=== PATIENT | female | born 1995 | race African-American/Black ===

== ENCOUNTER → 2016-12-29 | Outpatient (CLI) | payer MEDICAID ==
--- NOTE | 2016-12-29 15:58 | RADIOLOGY REPORT (SQ) ---
EXAM DESCRIPTION: U/S OB 14+ TRNABD 1GES W/O DOP COMPLETED DATE/TIME: 12/29/2016 3:20 pm REASON FOR STUDY: ENCOUNTER FOR SUPERVISION OF NORMAL , FIRST TRIMESTER Z34.81 ENCOUNTER F OR SUPRVSN OF NORMAL , FIRST TRIM COMPARISON: None. TECHNIQUE: Static and Dynamic grayscale imaging performed of gravid uterus using transabdominal appr oach. Additional selected color Doppler and spectral images recorded. All stored on PACS. LIMITATIONS: None. FINDINGS: EGA: 17 week 6 day. SANDRA: 06/02/2017. EFW: 214 g. PERCENTILE: Not applicable. Fetus less than or equal to 20 weeks gestation.No DONNIE: Adequate amount. PLACENTA: Posterior fundal. PRESENTATION: Variable. ANATOMY: HEART RATE: 136 beats per minute. FOUR CHAMBER HEART: Visualized. THREE VESSEL CORD: Yes. CORD INSERTION: Visualized. KIDNEYS AND BLADDER: Mild prominence of the renal pelvis of both kidneys. STOMACH: Visualized. Appears normal. SPINE: Normal as visualized. BRAIN AND LATERAL VENTRICLES: Visualized. Appear normal. OTHER: No other significant finding. MATERNAL ADNEXA: Maternal ovaries not visualized. CERVICAL LENGTH: 4.3 cm. Closed. OTHER: No other significant finding. IMPRESSION: LIVING INTRAUTERINE . ESTIMATED GESTATIONAL AGE 17 WEEK 6 DAY. MILD PROMINENCE OF THE RENAL PELVIS OF BOTH KIDNEYS. RECOMMEND FOLLOW-UP ULTRASOUND IN A FE W WEEKS FOR RE-EVALUATION. Trimester of : Second trimester - 13 weeks 1 day to 27 weeks 6 days. TECHNICAL DOCUMENTATION: JOB ID: [id number] [employer]- All Rights Reserved
== END ==
LOC: RAD 14:03
PROVIDERS: ATTEND Nurse Practitioner Women's Health
DX: Z34.82 Encounter for supervision of other normal pregnancy, second trimester (principal)
CPT/HCPCS: 76805

== ENCOUNTER 2017-05-23 13:14 | Outpatient (CLI) | payer MEDICAID ==
[2017-05-23 14:08] LABS: AMNISURE (ROM) NEGATIVE (NEGATIVE)
[2017-05-23 14:13] LABS: APPEARANCE,URINE CLOUDY; BILIRUBIN,URINE NEGATIVE (NEGATIVE); GLUCOSE, URINE NEGATIVE (NEGATIVE); KETONES,URINE NEGATIVE (NEGATIVE); LEUKOCYTE ESTERASE,URINE LARGE (NEGATIVE); NITRITE,URINE NEGATIVE (NEGATIVE); PROTEIN,URINE 30 mg/dL (NEGATIVE); URINE SPECIFIC GRAVITY 1.016
[2017-05-23 14:36] LABS: URINE BARBITURATES SCREEN NEGATIVE; URINE METHADONE SCREEN NEGATIVE; URINE OPIATES LOW NEGATIVE; URINE PHENCYCLIDINE SCREEN NEGATIVE
== END 2017-05-23 15:30 | disposition home or self-care (01) ==
LOC: LC 13:14
PROVIDERS: ATTEND Obstetrics & Gynecology
PROC: 4A1HXCZ Monitoring of Products of Conception, Cardiac Rate, External Approach (ICD-10-PCS; principal; 2017-05-23)
DX: O47.1 False labor at or after 37 completed weeks of gestation (principal); Z3A.38 38 weeks gestation of pregnancy
CPT/HCPCS: 59025; 80307; 81005; 84112

== ENCOUNTER 2017-06-01 08:32 | Inpatient (IN) | payer MEDICAID ==
[2017-06-01] MEDS ORDERED: OXYTOCIN/NORMAL SALINE 20 UNIT/1,000 ML RTUINJ IV PRN ×2 (09:12→16:37)
[2017-06-01] MEDS ORDERED: RINGERS SOLUTION,LACTATED 300 ML IV ONE (09:12)
[2017-06-01] MEDS ORDERED: RINGERS SOLUTION,LACTATED 1,000 ML IV PRN (09:12)
[2017-06-01 09:18] LABS: AMNISURE (ROM) NEGATIVE (NEGATIVE)
[2017-06-01] MEDS ORDERED: MISOPROSTOL 0.2 MG TABLET ONE (09:31)
[2017-06-01] MEDS ORDERED: OXYTOCIN/NORMAL SALINE 20 UNIT/1,000 ML RTUINJ ONE (09:32)
[2017-06-01] MEDS ORDERED: FENTANYL/BUPIVACAINE/NS/PF 200 MCG/100 ML RTUINJ EPI ONE (09:32)
[2017-06-01] MEDS ORDERED: EPHEDRINE SULFATE INJ 50 MG/1 ML AMPULE ONE (09:32)
[2017-06-01] MEDS ORDERED: LIDOCAINE 1% INJ-PF (10 MG/ML) 30 ML SDV ONE (09:32)
[2017-06-01] MEDS ORDERED: BUPIVACAINE HCL 0.25 % INJ/PF (2.5 MG/1 ML) 30 ML VIAL ONE (09:32)
[2017-06-01 09:48] LABS: ABSOLUTE EOSINOPHILS # (AUTO) 0.1 10^3/uL (0.0-0.6); ABSOLUTE MONOCYTES (AUTO) 0.8 10^3/uL (0.1-1.4); ABSOLUTE NEUT (AUTO) 7.9 10^3/uL (1.7-8.2); BASOPHILS % (AUTO) 0.5 % (0-2); EOSINOPHILS % (AUTO) 0.8 % (0-6); HEMATOCRIT 30.7 % (36.0-47.0); HEMOGLOBIN 9.8 g/dL (12.0-15.5); HGB HCT DIFFERENCE -1.3; LYMPHOCYTES % (AUTO) 18.5 % (13-45); MEAN CORPUSCULAR HEMOGLOBIN 21.3 pg (27.0-33.4); MEAN CORPUSCULAR VOLUME 67 fl (80-97); MONOCYTES % (AUTO) 7.2 % (3-13); RED BLOOD COUNT 4.61 10^6/uL (3.72-5.28); RED CELL DISTRIBUTION WIDTH 17.7 % (11.5-14.0); WHITE BLOOD COUNT 10.8 10^3/uL (4.0-10.5)
[2017-06-01 10:00] LABS: CREATININE RESULT 0.54 mg/dL (0.52-1.25)
--- NOTE | 2017-06-01 11:05 | L&D Progress Notes ---
PROGRESS NOTES Datetime Report Generated by CPN: 06/01/2017 11:05 PROGRESS NOTE Impression: Normal Progression of Labor Procedures: Artificial ROM; Sterile Vag Exam Plan: Continue Present Management Comment: SVE with AROM with clear fluid. Comfortable with epidural in place. VAGINAL EXAM Dilatation: 7 Dilatation: 4 Effacement: 100 Effacement: 90 Station: -1 Station: -1 MEMBRANES Membranes: Ruptured Membranes: Bulging Amniotic Fluid Color: Clear FETUS A FHR - Baseline: 120 Monitoring: External US : 39.6 Presentation: Vertex SIGNATURE SIGNATURE: [id number] Assignment: Alize Sewell MD Signature: with User ID: [email or web address] : with User ID: [email or web address] : I personally evaluated and examined the patient in conjunction with the MLP and agree with the assessment, treatment plan and disposition.
[2017-06-01 11:29] LABS: APPEARANCE,URINE CLEAR; BILIRUBIN,URINE NEGATIVE (NEGATIVE); GLUCOSE, URINE NEGATIVE (NEGATIVE); KETONES,URINE NEGATIVE (NEGATIVE); LEUKOCYTE ESTERASE,URINE TRACE (NEGATIVE); NITRITE,URINE NEGATIVE (NEGATIVE); PROTEIN,URINE NEGATIVE (NEGATIVE); URINE SPECIFIC GRAVITY 1.012; UROBILINOGEN,URINE NEGATIVE mg/dL (<2.0)
[2017-06-01 11:47] LABS: URINE BARBITURATES SCREEN NEGATIVE; URINE METHADONE SCREEN NEGATIVE; URINE OPIATES LOW NEGATIVE; URINE PHENCYCLIDINE SCREEN NEGATIVE
[2017-06-01] MEDS ORDERED: MAGNESIUM HYDROXIDE SUSP 30 ML UDCUP PO PRN (16:37)
[2017-06-01] MEDS ORDERED: ACETAMINOPHEN WITH CODEINE #3 TABLET PO PRN ×2 (16:37)
[2017-06-01] MEDS ORDERED: ZOLPIDEM TARTRATE 5 MG TABLET PO PRN (16:37)
[2017-06-01] MEDS ORDERED: GLYCERIN/WITCH HAZEL LEAF 1 EACH MED..PAD TP PRN (16:37)
[2017-06-01] MEDS ORDERED: DIBUCAINE 1% OINTMENT 28 GM TP PRN (16:37)
[2017-06-01] MEDS ORDERED: PROMETHAZINE HCL INJ 25 MG/1 ML VIAL IV PRN (16:37)
[2017-06-01] MEDS ORDERED: PROMETHAZINE HCL 25 MG TABLET PO PRN (16:37)
[2017-06-01] MEDS ORDERED: PSEUDOEPHEDRINE HCL 30 MG TABLET PO PRN (16:37)
[2017-06-01] MEDS ORDERED: ACETAMINOPHEN 650 MG SUPP.RECT PR PRN (16:37)
[2017-06-01] MEDS ORDERED: DIPHENHYDRAMINE HCL 25 MG CAPSULE PO PRN (16:37)
[2017-06-01] MEDS ORDERED: DIPH/PERTUSS(ACELL)/TETANUS VAC/PF 0.5 ML SYR (>=10YO) IM PRN (16:37)
[2017-06-01] MEDS ORDERED: BENZOCAINE/MENTHOL AEROSOL SPRAY 56 ML TOP PRN (16:37)
[2017-06-01] MEDS ORDERED: PROMETHAZINE HCL 25 MG SUPP.RECT PR PRN (16:37)
[2017-06-01] MEDS ORDERED: NA PHOS,M-B/NA PHOS,DI-BA (ADULT) 133 ML ENEMA PR PRN (16:37)
[2017-06-01] MEDS ORDERED: MEASLES,MUMPS&RUBELLA VACC/PF 0.5 ML VIAL SUBCUT PRN (16:37)
--- NOTE | 2017-06-01 18:08 | Admission Physical ---
Datetime Report Generated by CPN: 06/01/2017 18:08 CURRENT ADMISSION Chief Complaint: Uterine Contractions; Suspected Ruptured Membranes Indication for Induction: Term, Intrauterine ; Active Labor Admit Plan: Admit to Unit; Initiate Labor Protocol ALLERGIES Medication Allergies: No Medication Allergies: No Known Allergies (06/01/2017) Medication Allergies: No Known Allergies (05/23/2017) Medication Allergies: NKDA Latex: No Latex Allergies Food Allergies: none Environmental Allergies: none OBSTETRICAL HISTORY EDC: 06/02/2017 00:00 : 2 Para: 0 Term: 0 : 0 SAB: 1 IAB: 0 Ectopic: 0 Livin Cesareans: 0 VBACs: 0 Multiple Births: 0 Gestational Diabetes: No Rh Sensitization: No Incompetent Cervix: No ERIBERTO: No Infertility: No ART Treatment: No Uterine Anomaly: No IUGR: No Hx Previous C/S: No Macrosomia: No Hx Loss/Stillborn: No PIH: No Hx : No Placenta Previa/Abruption: No Depression/PP Depression: No PTL/PROM: No Post Hemorrhage: No Current Procedures: Ultrasound; NST Obstetrical History Comments: G1- SAB G2- Current SEE RECORDS Alcohol: No Marijuana : No Cocaine: No Other Illicit Drugs: No Cigarettes: Never Smoker. 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 Surgery: No Heart Disease: No Hosp/Surgery: Yes Autoimmune Disorder: No Anesthetic Complications: No Kidney Disease: No Abnormal Pap Smear: No Neuro/Epilepsy: No Psychiatric Disorders: No Other Medical Diseases: No Hepatitis/Liver Disease: No Significant Family History: No Varicosities/Phlebitis: No Trauma/Violence : No Thyroid Dysfunction: No Medical History Comments: Tonsils INFECTIOUS HISTORY Gonorrhea: No Genital Herpes: No Chlamydia: No Tuberculosis: No Syphilis: No Hepatitis: No HIV/AIDS Exposure: No Rash or Viral Illness: No HPV: No PHYSICAL EXAM General: Normal HEENT: Normal Neurologic: Normal Thyroid: Deferred Heart: Normal Lungs: Normal Breast: Deferred Back: Normal Abdomen: Normal Genitourinary Exam: Deferred Extremities: Normal DTRs: Normal Pelvic Type: Not Done Physical Exam Comments: Gravid uterus VAGINAL EXAM Dilatation: 7 Dilatation: 4 Effacement: 100 Effacement: 90 Station: -1 Station: -1 MEMBRANES Membranes: Ruptured Membranes: Bulging Amniotic Fluid Color: Clear FETUS A EGA: 39.6 Monitoring: External US FHR- Baseline: 130 Variability: Moderate 6-25bpm Decelerations: None Presentation: Vertex Admit Comment: C/o labor contractions and possible SROM this am records available Obesity Plan to admit and obtain epidural for pain management PLANS FOR LABOR AND DELIVERY Labor and Delivery: None Pain Management: Epidural Feeding Preference: Breast Benefit of Breast Feed Discussed: Yes Circumcision: N/A INFORMED CONSENT Assignment: Alize Sewell MD Signature: with User ID: [email or web address] : with User ID: [email or web address] : I personally evaluated and examined the patient in conjunction with the MLP and agree with the assessment, treatment plan and disposition.
--- NOTE | 2017-06-01 18:23 | Delivery Summary ---
Del Sum A-C Datetime Report Generated by CPN: 06/01/2017 18:23 DELIVERY PERSONNEL DELIVERY PERSONNEL: [id number] Delivery Doctor:: Alize Sewell MD Labor and Delivery Nurse:: Caridad Carpio RN Nursery Nurse:: Erika Craig RN Nursery Nurse:: Lucinda Madsen RN Student Observers:: Alf Ta/AUTO SELF SERVICE STATION ATTENDANT: Ozzie Heard, BURNISHING MACHINE OPERATOR MATERNAL INFORMATION Delivery Anesthesia: Epidural Medications After Delivery: Pitocin Bolus-Please Comment Meds After Delivery Comment: Pitocin 20 Units in 1 L NS bolusing per order Estimated Blood Loss (ml): 250 Maternal Complications: None Provider Comments: VFI delivered in JONATAN presentation. Tight nuchal cord delivered through. SHoulders and body delivered without difficulty. Cord doubly clamped and cut and infant to maternal abdomen. FF at U after placenta delivered spontaneously intact. 2nd degree perineal laceration repaired in usual fashion. Good hemostasis. Mother and baby stable upon provider leaving the room. LABOR SUMMARY EDC: 06/02/2017 00:00 No. Babies in Womb: 1 Attempted: No Labor Anesthesia: Epidural LABOR INFORMATION Reason for Induction: Not Applicable Onset of Labor: 06/01/2017 11:00 Complete Dilatation: 06/01/2017 14:55 Oxytocin: N/A Group B Beta Strep: Negative Antibiotics # of Doses: 0 Steroids Given: None Reason Steroids Not Administered: Not Applicable MEMBRANES Membranes Rupture Method: Artificial Rupture of Membranes: 06/01/2017 10:58 Length of Rupture (hr): 4.90 Amniotic Fluid Color: Clear Amniotic Fluid Amount: Small Amniotic Fluid Odor: Normal STAGES OF LABOR Stage 1 hr: 3 Stage 1 min: 55 Stage 2 hr: 0 Stage 2 min: 57 Stage 3 hr: 0 Stage 3 min: 6 Total Time in Labor hr: 4 Total Time in Labor min: 58 VAGINAL DELIVERY Episiotomy: None Laceration #1: Perineal Laceration Extension #1: Second Degree Laceration Repair: Yes Laceration Repair Note: 2nd degree perineal laceration repaired in usual fashion. Good hemostasis Sponge Count Correct: N/A Sharps Count Correct: Yes CSECTION DELIVERY Primary Indication: N/A Secondary Indication: N/A CSection Incidence: N/A Labor: N/A Elective: N/A CSection Incision: N/A BABY A INFORMATION Infant Delivery Date/Time: 06/01/2017 15:52 Method of Delivery: Vaginal Born in Route : No : N/A Forceps: N/A Vacuum Extraction: N/A Shoulder Dystocia : No PRESENTATION/POSITION BABY A Presentation: Cephalic Cephalic Presentation: Vertex Vertex Position: Right Occipital Anterior Breech Presentation: N/A PLACENTA INFORMATION BABY A Placenta Delivery Time : 06/01/2017 15:58 Placenta Method of Delivery: Spontaneous Placenta Status: Delivered SCORES BABY A Heart Rate 1 min: >100 bpm Resp Effort 1 min: Good Cry Reflex Irritability 1 min: Cough or Sneeze or Pulls Away Muscle Tone 1 min: Active Motion Color 1 min: Body Boutte, Extremities Blue Resuscitation Effort 1 min: Tactile Stimulation SCORE 1 MIN: 9 Heart Rate 5 min: >100 bpm Resp Effort 5 min: Good Cry Reflex Irritability 5 min: Cough or Sneeze or Pulls Away Muscle Tone 5 min: Active Motion Color 5 min: Body Boutte, Extremities Blue Resuscitation Effort 5 min: Tactile Stimulation SCORE 5 MIN: 9 INFANT INFORMATION BABY A Gestational Age at Delivery: 39.6 Gestational Status: Full Term- 39- 40.6 Weeks Outcome : Liveborn Condition : Stable Infant Sex: Female IDENTIFICATION BABY A Infant Verification Date/Time: 06/01/2017 16:03 ID Band Number: [id number] Mother's Name Verified: Yes RN Verifying : J Field RN Additional Verifying Personnel: D [facility] RNC WEIGHT/LENGTH BABY A Infant Birthweight (gm): 3930 Weight (lb): 8 Infant Weight (oz): 11 Length (in): 20.50 Length (cm): 52.07 CORD INFORMATION BABY A No. Cord Vessels: 3 Nuchal Cord : Around Neck x1, Tight Nuchal Cord- Other: Compound right hand Cord Blood Taken: Yes-For Storage (Mom's Blood type +) Infant Suction: Mouth; Nose ASSESSMENT BABY A Infant Complications: Decreased Variability Skin to Skin: Yes Skin to Skin Time (min): 45 BABY B INFORMATION : N/A SIGNATURES Signature: with User ID: [email or web address] : I personally evaluated and examined the patient in conjunction with the MLP and agree with the assessment, treatment plan and disposition.
[2017-06-01] MEDS: DOCUSATE SODIUM 100 MG CAPSULE PO SCH (19:35)
[2017-06-01] MEDS: SENNOSIDES/DOCUSATE 8.6-50 MG 1 EACH TABLET PO SCH (19:35)
[2017-06-01] MEDS: FERROUS SULFATE 325 MG TABLET PO SCH (21:19)
[2017-06-01] MEDS: IBUPROFEN 800 MG TABLET PO SCH (21:44)
[2017-06-01] MEDS: FAMOTIDINE 20 MG TABLET PO SCH (21:44)
[2017-06-02] MEDS: IBUPROFEN 800 MG TABLET PO SCH ×3 (05:20→21:33)
[2017-06-02 08:07] LABS: HEMATOCRIT 24.6 % (36.0-47.0); HGB HCT DIFFERENCE -1.5; MEAN CORPUSCULAR HEMOGLOBIN 21.3 pg (27.0-33.4); MEAN CORPUSCULAR HGB CONC 31.5 g/dL (32.0-36.0); MEAN CORPUSCULAR VOLUME 68 fl (80-97); RED BLOOD COUNT 3.64 10^6/uL (3.72-5.28); RED CELL DISTRIBUTION WIDTH 17.4 % (11.5-14.0); WHITE BLOOD COUNT 13.7 10^3/uL (4.0-10.5)
[2017-06-02 08:16] LABS: HEMOGLOBIN 7.7 g/dL (12.0-15.5)
[2017-06-02] MEDS: SENNOSIDES/DOCUSATE 8.6-50 MG 1 EACH TABLET PO SCH (09:50)
[2017-06-02] MEDS: FERROUS SULFATE 325 MG TABLET PO SCH ×2 (09:51→17:47)
[2017-06-02] MEDS: PRENATAL VITAMIN W-O CA NO5/FE FUMARATE/FA CAPSULE PO SCH (09:51)
[2017-06-02] MEDS: FAMOTIDINE 20 MG TABLET PO SCH ×2 (09:51→21:32)
[2017-06-02] MEDS: DOCUSATE SODIUM 100 MG CAPSULE PO SCH ×2 (09:51→17:47)
--- NOTE | 2017-06-02 10:18 | PDOC PROGRESS REPORT ---
Subjective-OB Subjective: Post Delivery Day: 22 year old. Denies any needs at this time Doing well, no c/o, breast feeding, voiding, ambulating Physical Exam (OB) Vital Signs: Temp Pulse Resp BP Pulse Ox 98.0 F 74 15 123/57 L 100 06/02/17 08:30 06/02/17 08:30 06/02/17 08:30 06/02/17 08:30 06/02/17 08:30 Intake & Output 06/01/17 06/02/17 06/03/17 06:59 06:59 06:59 Weight 102.75 kg - PIH/Pre-Eclampsia Clonus: Positive - Lochia Lochia Amount: Scant < 10 ml Lochia Color: Rubra/Red - Abdomen Description: Soft, Flat Hernia Present: No Fundal Description: Firm, Midline Fundal Height: 1/u - 2/u Objective-Diagnostic Laboratory: 06/02/17 07:10 06/01/17 09:33 06/01/17 06/01/17 06/02/17 08:36 09:33 07:10 WBC 13.7 H RBC 3.64 L Hgb 7.7 L D Hct 24.6 L MCV 68 L MCH 21.3 L MCHC 31.5 L RDW 17.4 H Plt Count 303 Urine Color YELLOW Urine Appearance CLEAR Urine pH 6.0 Ur Specific [place] 1.012 Urine Protein NEGATIVE Urine Glucose (UA) NEGATIVE Urine Ketones NEGATIVE Urine Blood NEGATIVE Urine Nitrite NEGATIVE Ur Leukocyte Esterase TRACE H Blood Type A POSITIVE Antibody Screen NEGATIVE Assessment and Plan(PN) - Assessment and Plan (1) Normal vaginal delivery Is this a current diagnosis for this admission?: Yes (2) Anemia Qualifiers: Anemia type: iron deficiency Is this a current diagnosis for this admission?: Yes - Time Spent with Patient Time with patient: Less than 15 minutes Medications reviewed and adjusted accordingly: Yes - Disposition Anticipated Discharge: Home Within: within 24 hours
[2017-06-03] MEDS: IBUPROFEN 800 MG TABLET PO SCH (05:57)
[2017-06-03 09:50] VITALS: BP 124/72
[2017-06-03] MEDS: FERROUS SULFATE 325 MG TABLET PO SCH (10:12)
[2017-06-03] MEDS: SENNOSIDES/DOCUSATE 8.6-50 MG 1 EACH TABLET PO SCH (10:12)
[2017-06-03] MEDS: FAMOTIDINE 20 MG TABLET PO SCH (10:12)
[2017-06-03] MEDS: PRENATAL VITAMIN W-O CA NO5/FE FUMARATE/FA CAPSULE PO SCH (10:13)
[2017-06-03] MEDS: DOCUSATE SODIUM 100 MG CAPSULE PO SCH (10:13)
--- NOTE | 2017-06-03 11:06 | PDOC DISCHARGE SUMMARY ---
Final Diagnosis Discharge Date: 06/03/17 - Final Diagnosis (1) Anemia Is this a current diagnosis for this admission?: Yes (2) Normal vaginal delivery Is this a current diagnosis for this admission?: Yes Discharge Data - Discharge Medication Home Medications: Pnv 102/Iron/Folate 1/Dss/Dha [Vitafol Fe+ Docusate Combo Pck] 1 tab PO DAILY Docusate Sodium [Colace 100 mg Capsule] 100 mg PO BID #60 capsule 06/03/17 Ferrous Sulfate [Feosol 325 mg Tablet] 325 mg PO BID #60 tablet 06/03/17 Ibuprofen [Motrin 800 mg Tablet] 800 mg PO Q8 #60 tablet 06/03/17 Gestational Age: 39.6 Procedures: NST Intrapartum Procedure(s): Spontaneous Vaginal Delivery - Data Baby 1 Female at 1 minute: 9 at 5 minutes: 9 Weight: 3.941 kg Home with Mother: Yes Complications: No - Diagnosis Test Laboratory: Temp Pulse Resp BP Pulse Ox 97.7 F 80 16 124/72 100 06/03/17 09:47 06/03/17 09:47 06/03/17 09:47 06/03/17 09:47 06/03/17 09:47 06/01/17 06/01/17 06/02/17 08:36 09:33 07:10 RBC 4.61 3.64 L Hgb 9.8 L 7.7 L D Hct 30.7 L 24.6 L Urine Opiates Screen NEGATIVE - Discharge information/Instructions Discharge Activity: Activity As Tolerated, Pelvic Rest, No tub bath Discharge Diet: Regular Disposition: HOME, SELF-CARE Follow up with: [facility] in: 4, Weeks
== END 2017-06-03 13:50 | disposition home or self-care (01) | DRG 775 ==
LOC: LC 08:32 → LR 09:12 → 2S 18:06
PROVIDERS: ADMIT Student in an Organized Health Care Education/Training Program; ATTEND Student in an Organized Health Care Education/Training Program
PROC: 10E0XZZ Delivery of Products of Conception, External Approach (ICD-10-PCS; principal; 2017-06-01)
PROC: 0KQM0ZZ Repair Perineum Muscle, Open Approach (ICD-10-PCS; 2017-06-01)
DX: O69.1XX0 Labor and delivery complicated by cord around neck, with compression, not applicable or unspecified (principal); O99.214 Obesity complicating childbirth; E66.9 Obesity, unspecified; O70.1 Second degree perineal laceration during delivery; D50.9 Iron deficiency anemia, unspecified; O99.02 Anemia complicating childbirth; O76 Abnormality in fetal heart rate and rhythm complicating labor and delivery; Z3A.39 39 weeks gestation of pregnancy; Z37.0 Single live birth; Z68.32 Body mass index [BMI] 32.0-32.9, adult
CPT/HCPCS: 36415; 80307; 81005; 82565; 84112; 85025; 85027; 86592; 86850; 86900; 86901; J2590; J3490

== ENCOUNTER 2017-06-06 12:40 | Emergency (ER) | payer MEDICAID ==
[2017-06-06] MEDS ORDERED: NORMAL SALINE 1000 ML 1,000 ML IV PRN (12:53)
[2017-06-06] MEDS ORDERED: ACETAMINOPHEN 325 MG TABLET PO ONE (12:53)
--- NOTE | 2017-06-06 12:54 | ER Document Report ---
ED Medical Screen (RME) - General Stated Complaint: FEVER Time Seen by Provider: 06/06/17 12:50 Mode of Arrival: Ambulatory Information source: Patient TRAVEL OUTSIDE OF THE [place] IN LAST 30 DAYS: No - HPI Patient complains to provider of: Fever Notes: 06/06/17 12:53 Patient is a 22-year-old female who is 5 days from a normal vaginal delivery with no complications, presenting to the emergency room today complaining of fever, she denies cold cough congestion, she has some nausea at times but no vomiting or diarrhea, she has had a small amount of bleeding with no other odorous or abnormal vaginal discharge, she does report mild tenderness to the left breast and she is breast-feeding - Related Data Allergies/Adverse Reactions: No Known Allergies Allergy (Verified 06/01/17 08:46) Past Medical History - Immunizations History of Influenza Vaccine for 05/2017 - 10/2017 Season: Yes
[2017-06-06 13:40] LABS: ABSOLUTE EOSINOPHILS # (AUTO) 0.1 10^3/uL (0.0-0.6); ABSOLUTE LYMPHOCYTES (AUTO) 1.2 10^3/uL (0.5-4.7); ABSOLUTE MONOCYTES (AUTO) 0.8 10^3/uL (0.1-1.4); BASOPHILS % (AUTO) 0.3 % (0-2); EOSINOPHILS % (AUTO) 1.1 % (0-6); HEMATOCRIT 28.8 % (36.0-47.0); HEMOGLOBIN 9.3 g/dL (12.0-15.5); HGB HCT DIFFERENCE -0.9; LYMPHOCYTES % (AUTO) 8.8 % (13-45); MEAN CORPUSCULAR HEMOGLOBIN 21.9 pg (27.0-33.4); MEAN CORPUSCULAR HGB CONC 32.3 g/dL (32.0-36.0); MEAN CORPUSCULAR VOLUME 68 fl (80-97); MONOCYTES % (AUTO) 6.2 % (3-13); RED BLOOD COUNT 4.26 10^6/uL (3.72-5.28); RED CELL DISTRIBUTION WIDTH 18.1 % (11.5-14.0); SEGMENTED NEUTROPHILS % (AUTO) 83.6 % (42-78); WHITE BLOOD COUNT 13.2 10^3/uL (4.0-10.5)
--- NOTE | 2017-06-06 13:42 | ER Document Report ---
ED General - General Chief Complaint: Fever Stated Complaint: FEVER Time Seen by Provider: 06/06/17 12:50 Mode of Arrival: Ambulatory TRAVEL OUTSIDE OF THE [place] IN LAST 30 DAYS: No - HPI Onset: This morning Associated symptoms: Fever Notes: Patient is a 22-year-old female who is 5 days status post normal spontaneous vaginal delivery at full-term. The delivery was uncomplicated. Patient has been doing well at home since the delivery until today when she developed a fever with T-max of 102.5. Patient denies any cough, denies any urinary complaints. States her abdominal pain is minimal. Denies any discharge from her delivery wound. Also denies any breast pain. - Related Data Allergies/Adverse Reactions: No Known Allergies Allergy (Verified 06/01/17 08:46) Past Medical History - General Information source: Patient - Social History Smoking Status: Never Smoker Frequency of alcohol use: None Drug Abuse: None Family History: Reviewed & Not Pertinent Patient has suicidal ideation: No Patient has homicidal ideation: No Renal/ Medical History: Denies: Hx Peritoneal Dialysis Past Surgical History: Reports: Hx Tonsillectomy Review of Systems - Review of Systems Constitutional: Fever -: Yes All other systems reviewed and negative Physical Exam - Vital signs Vitals: Temp Pulse Resp BP Pulse Ox 100.0 F 131 H 18 155/77 H 98 06/06/17 12:51 06/06/17 12:51 06/06/17 12:51 06/06/17 12:51 06/06/17 12:51 Interpretation: Normal - General General appearance: Appears well, Alert - HEENT Head: Normocephalic, Atraumatic Eyes: Normal Pupils: PERRL - Respiratory Respiratory status: No respiratory distress Chest status: Nontender Breath sounds: Normal Chest palpation: Normal - Cardiovascular Rhythm: Regular Heart sounds: Normal auscultation Murmur: No - Abdominal Inspection: Normal Distension: No distension Bowel sounds: Normal Tenderness: Nontender Organomegaly: No organomegaly - Back Back: Normal, Nontender - Extremities General upper extremity: Normal inspection, Nontender, Normal color, Normal ROM , Normal temperature General lower extremity: Normal inspection, Nontender, Normal color, Normal ROM , Normal temperature, Normal weight bearing. No: Demar's sign - Neurological Neuro grossly intact: Yes Cognition: Normal Orientation: AAOx4 Gem Coma Scale Eye Opening: Spontaneous Esteban Coma Scale Verbal: Oriented Esteban Coma Scale Motor: Obeys Commands Gem Coma Scale Total: 15 Speech: Normal Motor strength normal: LUE, RUE, LLE, RLE Sensory: Normal - Psychological Associated symptoms: Normal affect, Normal mood - Skin Skin Temperature: Warm Skin Moisture: Dry Skin Color: Normal Course - Re-evaluation Re-evalutation: 06/06/17 14:27 UA consistent with UTI. Chest x-ray is negative, labs are normal. Patient nontoxic-appearing. Will give dose of IV Rocephin here and discharged home on antibiotics. Will discuss issue of breast-feeding with patient. - Vital Signs Vital signs: Temp Pulse Resp BP Pulse Ox 100.0 F 131 H 18 155/77 H 98 06/06/17 12:51 06/06/17 12:51 06/06/17 12:51 06/06/17 12:51 06/06/17 12:51 - Laboratory Result Diagrams: 06/06/17 13:07 06/06/17 13:07 Laboratory results interpreted by me: 06/06/17 06/06/17 13:07 13:07 WBC 13.2 H Hgb 9.3 L Hct 28.8 L MCV 68 L MCH 21.9 L RDW 18.1 H Seg Neutrophils % 83.6 H Lymphocytes % 8.8 L Absolute Neutrophils 11.0 H Urine Protein 100 H Urine Blood LARGE H Urine Urobilinogen 2.0 H Ur Leukocyte Esterase LARGE H - Diagnostic Test Radiology reviewed: Reports reviewed Radiology results interpreted by me: 06/06/17 14:27 Chest x-ray negative Discharge - Discharge Clinical Impression: UTI (urinary tract infection) Condition: Good Disposition: HOME, SELF-CARE Instructions: Urinary Tract Infection ([facility]) Additional Instructions: You should pump and dump your breast milk while taking antibiotics. Follow-up with your [facility] doctor on Thursday. Return to the emergency department if worse or for any other problems. Prescriptions: Cephalexin Monohydrate [Keflex 500 mg Capsule] 1,000 mg PO Q12H 7 Days #28 capsule Referrals: ROSE WATTERS MD [Primary Care Provider] - Follow up as needed
[2017-06-06 13:56] LABS: APPEARANCE,URINE CLOUDY; BILIRUBIN,URINE NEGATIVE (NEGATIVE); GLUCOSE, URINE NEGATIVE (NEGATIVE); KETONES,URINE NEGATIVE (NEGATIVE); LEUKOCYTE ESTERASE,URINE LARGE (NEGATIVE); NITRITE,URINE NEGATIVE (NEGATIVE); PROTEIN,URINE 100 mg/dL (NEGATIVE); URINE SPECIFIC GRAVITY 1.011
[2017-06-06 13:57] LABS: ANION GAP 14 (5-19); BLOOD UREA NITROGEN 9 mg/dL (7-20); CARBON DIOXIDE 22 mmol/L (22-30); CHLORIDE 103 mmol/L (98-107); CREATININE RESULT 0.79 mg/dL (0.52-1.25); GLUCOSE 90 mg/dL (75-110); POTASSIUM 4.1 mmol/L (3.6-5.0); SODIUM 139.1 mmol/L (137-145)
--- NOTE | 2017-06-06 13:58 | RADIOLOGY REPORT (SQ) ---
EXAM DESCRIPTION: CHEST SINGLE VIEW COMPLETED DATE/TIME: 06/06/2017 1:46 pm REASON FOR STUDY: fever COMPARISON: None. EXAM PARAMETERS: NUMBER OF VIEWS: One view. TECHNIQUE: Single frontal radiographic view of the chest acquired. RADIATION DOSE: NA LIMITATIONS: None. FINDINGS: LUNGS AND PLEURA: No opacities, masses or pneumothorax. No pleural effusion. MEDIASTINUM AND HILAR STRUCTURES: No masses. Contour normal. HEART AND VASCULAR STRUCTURES: Heart normal in size. Normal vasculature. BONES: No acute findings. HARDWARE: None in the chest. OTHER: No other significant finding. IMPRESSION: NO ACUTE RADIOGRAPHIC FINDING IN THE CHEST. TECHNICAL DOCUMENTATION: JOB ID: [id number]
[2017-06-06] MEDS ORDERED: CEFTRIAXONE 1 GM/D5W RTU 1 GM/50 ML RTUPB IV ONE (15:00)
[2017-06-06 16:14] VITALS: BP 129/80
[2017-06-07] MEDS ORDERED: CEFTRIAXONE 1 GM/D5W RTU 1 GM/50 ML RTUPB IV ONE (14:25)
== END 2017-06-06 16:14 | disposition home or self-care (01) ==
LOC: ER 12:40
DX: N39.0 Urinary tract infection, site not specified (principal); R50.9 Fever, unspecified
CPT/HCPCS: 99284; 96361; 96365; 36415; 85025; 80048; 81001; 71010; J3490; J7030; J0696

== ENCOUNTER 2019-08-24 19:54 | Emergency (ER) | payer SELFPAY ==
[2019-08-24] MEDS ORDERED: NORMAL SALINE 1000 ML 2,950 ML IV ONE (20:10)
[2019-08-24] MEDS ORDERED: IBUPROFEN 800 MG TABLET PO ONE (20:11)
[2019-08-24] MEDS ORDERED: ONDANSETRON HCL INJ/PF 4 MG/2 ML SDV IV ONE (20:11)
--- NOTE | 2019-08-24 20:13 | ER Document Report ---
ED Medical Screen (RME) - General Chief Complaint: Nausea/Vomiting/Diarrhea Stated Complaint: FEVER VOMITING Time Seen by Provider: 08/24/19 20:07 Primary Care Provider: ROSE WATTERS MD [Primary Care Provider] - Follow up as needed Information source: Patient Notes: Patient presents complaining of nausea vomiting diarrhea that started yesterday. Patient states she is vomited 4 times today and had diarrhea x2 episodes. Patient also complains of headache, sore throat and cough that started yesterday. Patient denies any sick contacts. Patient also complains of fever. I have greeted and performed a rapid initial assessment of this patient. A comprehensive ED assessment and evaluation of the patient, analysis of test results and completion of the medical decision making process will be conducted by additional ED providers. TRAVEL OUTSIDE OF THE [place] IN LAST 30 DAYS: No - Related Data Allergies/Adverse Reactions: No Known Allergies Allergy (Verified 06/01/17 08:46) Past Medical History - Social History Chew tobacco use (# tins/day): No Frequency of alcohol use: None Drug Abuse: None Renal/ Medical History: Denies: Hx Peritoneal Dialysis Past Surgical History: Reports: Hx Tonsillectomy Physical Exam - Vital signs Vitals: Temp Pulse Resp BP Pulse Ox 103.1 F H 124 H 20 139/77 H 96 08/24/19 20:00 08/24/19 20:00 08/24/19 20:00 08/24/19 20:00 08/24/19 20:00 - Respiratory Respiratory status: No respiratory distress Breath sounds: Nonproductive cough - Cardiovascular Rhythm: Tachycardia Heart sounds: S1 appreciated, S2 appreciated Course - Vital Signs Vital signs: Temp Pulse Resp BP Pulse Ox 103.1 F H 124 H 20 139/77 H 96 08/24/19 20:00 08/24/19 20:00 08/24/19 20:00 08/24/19 20:00 08/24/19 20:00 Doctor's Discharge - Discharge Referrals: ROSE WATTERS MD [Primary Care Provider] - Follow up as needed
[2019-08-24 21:01] LABS: ABSOLUTE LYMPHOCYTES (AUTO) 0.4 10^3/uL (0.5-4.7); ABSOLUTE MONOCYTES (AUTO) 0.9 10^3/uL (0.1-1.4); ABSOLUTE NEUT (AUTO) 5.8 10^3/uL (1.7-8.2); BASOPHILS % (AUTO) 0.3 % (0-2); EOSINOPHILS % (AUTO) 0.1 % (0-6); HEMATOCRIT 36.4 % (36.0-47.0); HEMOGLOBIN 12.3 g/dL (12.0-15.5); LYMPHOCYTES % (AUTO) 5.1 % (13-45); MEAN CORPUSCULAR HGB CONC 33.9 g/dL (32.0-36.0); MEAN CORPUSCULAR VOLUME 80 fl (80-97); MONOCYTES % (AUTO) 12.2 % (3-13); PLATELET COUNT 239 10^3/uL (150-450); RED BLOOD COUNT 4.56 10^6/uL (3.72-5.28); RED CELL DISTRIBUTION WIDTH 15.4 % (11.5-14.0); SEGMENTED NEUTROPHILS % (AUTO) 82.3 % (42-78); TOTAL CELLS COUNTED % (AUTO) 100 %
--- NOTE | 2019-08-24 21:16 | RADIOLOGY REPORT (SQ) ---
EXAM DESCRIPTION: [facility]: XR CHEST 2 VIEWS Views: 2 CLINICAL HISTORY: 24 years Female, fever, cough COMPARISON: 06/06/2017 FINDINGS: The lungs are clear. No pneumothorax or significant pleural effusion. Cardiomediastinal silhouette is within normal limits. Bony structures are unremarkable for age. IMPRESSION: 1. No acute cardiothoracic abnormality.
[2019-08-24 21:18] LABS: INTERNATIONAL RATION (INR) 1.12; PROTHROMBIN TIME 14.4 SEC (11.4-15.4)
[2019-08-24 21:20] LABS: A TYPE INFLUENZA AG POSITIVE (NEGATIVE); B INFLUENZA AG NEGATIVE (NEGATIVE)
[2019-08-24 21:27] LABS: ALBUMIN 4.6 g/dL (3.5-5.0); ALKALINE PHOSPHATASE 77 U/L (38-126); ANION GAP 13 (5-19); ASPARTATE AMINO TRANSFERASE 46 U/L (14-36); BILIRUBIN,DIRECT 0.3 mg/dL (0.0-0.4); BILIRUBIN,TOTAL 0.7 mg/dL (0.2-1.3); BLOOD UREA NITROGEN 11 mg/dL (7-20); CALCIUM 9.2 mg/dL (8.4-10.2); CARBON DIOXIDE 26 mmol/L (22-30); CHLORIDE 96 mmol/L (98-107); GLUCOSE 107 mg/dL (75-110); POTASSIUM 3.7 mmol/L (3.6-5.0); TOTAL PROTEIN 7.7 g/dL (6.3-8.2)
[2019-08-24 21:32] LABS: VENOUS BLOOD HCO3 25.8 mmol/L (20-32); VENOUS BLOOD PCO2 41.5 mmHg (35-63); VENOUS BLOOD PH 7.41 (7.30-7.42)
[2019-08-24 21:35] LABS: APPEARANCE,URINE SLIGHTLY-CLOUDY; BILIRUBIN,URINE NEGATIVE (NEGATIVE); COLOR,URINE AMBER; GLUCOSE, URINE NEGATIVE (NEGATIVE); KETONES,URINE NEGATIVE (NEGATIVE); PROTEIN,URINE 30 mg/dL (NEGATIVE); URINE SPECIFIC GRAVITY 1.031
[2019-08-24] MEDS ORDERED: OSELTAMIVIR PHOSPHATE 75 MG CAPSULE PO ONE (23:38)
--- NOTE | 2019-08-24 23:40 | ER Document Report ---
ED General - General Chief Complaint: Nausea/Vomiting/Diarrhea Stated Complaint: FEVER VOMITING Time Seen by Provider: 08/24/19 20:07 Primary Care Provider: ROSE WATTERS MD [JOEY DUNBAR] - Follow up as needed TRAVEL OUTSIDE OF THE [place] IN LAST 30 DAYS: No - HPI Onset: Yesterday Onset/Duration: Sudden Quality of pain: Achy Severity: Moderate Pain Level: 2 Context: 24 year old female healthy not is here with fever and achiness and some nonproductive cough. Sick relatively quickly. No known sick contacts. No rash. - Related Data Allergies/Adverse Reactions: No Known Allergies Allergy (Verified 06/01/17 08:46) Past Medical History - General Information source: Patient - Social History Smoking Status: Never Smoker Chew tobacco use (# tins/day): No Frequency of alcohol use: None Drug Abuse: None Family History: Reviewed & Not Pertinent Patient has suicidal ideation: No Patient has homicidal ideation: No Renal/ Medical History: Denies: Hx Peritoneal Dialysis Past Surgical History: Reports: Hx Tonsillectomy Review of Systems - Review of Systems Constitutional: See HPI, Chills, Fever, Malaise, Weakness EENT: No symptoms reported Cardiovascular: No symptoms reported Respiratory: See HPI, Cough Gastrointestinal: See HPI, Diarrhea, Vomiting Genitourinary: No symptoms reported Female Genitourinary: No symptoms reported Musculoskeletal: No symptoms reported Skin: No symptoms reported Hematologic/Lymphatic: No symptoms reported Neurological/Psychological: No symptoms reported Physical Exam - Vital signs Vitals: Temp Pulse Resp BP Pulse Ox 103.1 F H 124 H 20 139/77 H 96 08/24/19 20:00 08/24/19 20:00 08/24/19 20:00 08/24/19 20:00 08/24/19 20:00 Interpretation: Normal - General General appearance: Appears well, Alert - HEENT Head: Normocephalic, Atraumatic Eyes: Normal Pupils: PERRL - Respiratory Respiratory status: No respiratory distress Chest status: Nontender Breath sounds: Normal Chest palpation: Normal - Cardiovascular Rhythm: Regular Heart sounds: Normal auscultation Murmur: No - Abdominal Inspection: Normal Distension: No distension Bowel sounds: Normal Tenderness: Nontender Organomegaly: No organomegaly - Back Back: Normal, Nontender - Extremities General upper extremity: Normal inspection, Nontender, Normal color, Normal ROM, Normal temperature General lower extremity: Normal inspection, Nontender, Normal color, Normal ROM, Normal temperature, Normal weight bearing. No: Demar's sign - Neurological Neuro grossly intact: Yes Cognition: Normal Orientation: AAOx4 Esteban Coma Scale Eye Opening: Spontaneous Esteban Coma Scale Verbal: Oriented Esteban Coma Scale Motor: Obeys Commands Esteban Coma Scale Total: 15 Speech: Normal Motor strength normal: LUE, RUE, LLE, RLE Sensory: Normal - Psychological Associated symptoms: Normal affect, Normal mood - Skin Skin Temperature: Warm Skin Moisture: Dry Skin Color: Normal Course - Re-evaluation Re-evalutation: 08/24/19 23:41 MDM Healthy female non is here with Influenza A. Discussed recheck if no better and she expressed understanding. - Vital Signs Vital signs: Temp Pulse Resp BP Pulse Ox 103.1 F H 124 H 20 139/77 H 96 08/24/19 20:00 08/24/19 20:00 08/24/19 20:00 08/24/19 20:00 08/24/19 20:00 - Laboratory Result Diagrams: 08/24/19 20:25 08/24/19 20:25 Laboratory results interpreted by me: 08/24/19 08/24/19 08/24/19 20:25 20:25 21:00 RDW 15.4 H Lymph % (Auto) 5.1 L Absolute Lymphs (auto) 0.4 L Seg Neutrophils % 82.3 H Sodium 135.3 L Chloride 96 L AST 46 H Urine Protein 30 H Urine Urobilinogen 2.0 H Leukocyte Esterase Rfl TRACE H Urine Ascorbic Acid 40 H - Diagnostic Test Radiology reviewed: Reports reviewed - EKG Interpretation by Ne EKG shows normal: Sinus rhythm Rate: Tachycardia Rhythm: NSR - Sinus Tachy Nl [place] no st elevation or depression my interpretation. Discharge - Discharge Clinical Impression: Influenza A Condition: Good Disposition: HOME, SELF-CARE Instructions: Acetaminophen, Antinausea Medication ([facility]), Fever ([facility]), Viral Syndrome ([facility]) Additional Instructions: Take the tamiflu as directed. Rest. Plenty of fluids, Please return here for any problems or any conerns. No work 08/24 or 08/25. Prescriptions: Oseltamivir Phosphate [Tamiflu 75 mg Capsule] 75 mg PO BID #9 capsule Ondansetron [Zofran Odt 4 mg Tablet] 1 - 2 tab PO Q4H PRN #15 tab.rapdis PRN Reason: For Nausea/Vomiting Forms: Return to Work Referrals: ROSE WATTERS MD [JOEY DUNBAR] - Follow up as needed
[2019-08-24 23:51] VITALS: BP 106/66
--- NOTE | 2019-08-25 01:01 | EKG REPORT ---
SEVERITY:- ABNORMAL ECG - SINUS TACHYCARDIA CONSIDER LEFT VENTRICULAR HYPERTROPHY NONSPECIFIC T ABNORMALITIES, INFERIOR LEADS : Confirmed by: Samantha Kaba MD 25-Aug-2019 01:00:38
== END 2019-08-25 00:23 | disposition home or self-care (01) ==
LOC: ER 19:54
DX: J11.1 Influenza due to unidentified influenza virus with other respiratory manifestations (principal); R11.2 Nausea with vomiting, unspecified; R19.7 Diarrhea, unspecified; R50.9 Fever, unspecified; R53.1 Weakness
CPT/HCPCS: 93005; 99284; 36415; 87040; 87070; 87880; 83605; 84703; 85025; 85610; 80053; 81001; 82803; 87804; 71046; 93010; J3490

== ENCOUNTER 2020-05-12 19:07 | Emergency (ER) | payer MEDICAID ==
[2020-05-12 19:20] VITALS: BP 117/63
--- NOTE | 2020-05-12 19:47 | ER Document Report ---
HPI - HPI Patient complains to provider of: Submandible lymphadenopathy Time Seen by Provider: 05/12/20 19:34 Onset: This morning Onset/Duration: Gradual Quality of pain: Achy Severity: Mild Pain Level: 2 Context: 25-year-old female presented to ED ED for swelling lymph node under her chin. She states it started this morning. She states she got the flu and tetanus shot yesterday she is 29 weeks . She is done no symptoms except for the swollen lymph node under her chin. She states she does have an appointment with [facility] tomorrow for a recheck on fetus due to measuring larger than her 29 weeks. She states the health department measured her at 35 weeks and she is to go tomorrow to get a ultrasound. Associated Symptoms: Other - Large lymph node under her chin Exacerbated by: Denies Relieved by: Denies Similar symptoms previously: No Recently seen / treated by doctor: Yes - ROS ROS below otherwise negative: Yes - CONSTITUTIONAL Constitutional: DENIES: Fever, Chills - EENT EENT: DENIES: Sore Throat, Ear Pain, Nasal Drainage-Clear, Nasal Drainage- Purulent, Congestion, Eye problems Notes: Submandibular lymphadenopathy - NEURO Neurology: DENIES: Headache, Weakness, Vision blurred, Dizzinesss / Vertigo - CARDIOVASCULAR Cardiovascular: DENIES: Chest pain - RESPIRATORY Respiratory: DENIES: Trouble Breathing, Coughing - GASTROINTESTINAL Gastrointestinal: DENIES: Abdominal Pain, Nausea, Patient vomiting, Diarrhea, Constipation, Black / Bloody Stools Notes: 29 weeks - URINARY Urinary: DENIES: Dysuria, Urgency, Frequency - REPRODUCTIVE Reproductive: REPORTS: : - MUSCULOSKELETAL Musculoskeletal: DENIES: Extremity pain, Back Pain, Neck Pain, Swelling - DERM Skin Color: Normal Skin Problems: None Past Medical History - General Information source: Patient - Social History Smoking Status: Never Smoker Chew tobacco use (# tins/day): No Frequency of alcohol use: None Drug Abuse: None Lives with: Family Family History: Reviewed & Not Pertinent Patient has suicidal ideation: No Patient has homicidal ideation: No - Past Medical History Cardiac Medical History: Reports: None Pulmonary Medical History: Reports: None EENT Medical History: Reports: None Neurological Medical History: Reports: None Endocrine Medical History: Reports: None Renal/ Medical History: Reports: None Malignancy Medical History: Reports: None GI Medical History: Reports: None Musculoskeletal Medical History: Reports None Skin Medical History: Reports None Psychiatric Medical History: Reports: None Traumatic Medical History: Reports: None Infectious Medical History: Reports: None Past Surgical History: Reports: Hx Tonsillectomy - Immunizations Immunizations up to date: Yes Vertical Provider Document - CONSTITUTIONAL Agree With Documented VS: Yes Exam Limitations: No Limitations General Appearance: WD/WN, No Apparent Distress - INFECTION CONTROL TRAVEL OUTSIDE OF THE [place] IN LAST 30 DAYS: No - HEENT Notes: Submandibular lymph node enlarged - NECK Neck: Normal Inspection - RESPIRATORY Respiratory: Breath Sounds Normal - CARDIOVASCULAR Cardiovascular: Regular Rate - 92, Regular Rhythm - GI/ABDOMEN Gastrointestinal: Abdomen Non-Tender, Normal Bowel Sounds - 29 weeks . negative: Abdomen Soft - 29 weeks , No Organomegaly Notes: 29 weeks - BACK Back: Normal Inspection - MUSCULOSKELETAL/EXTREMETIES Musculoskeletal/Extremeties: MAEW, FROM, Non-Tender - NEURO Level of Consciousness: Awake, Alert, Appropriate Motor/Sensory: No Motor Deficit, No Sensory Deficit, No Pronator Drift Deep Tendon Reflexes: 2+ - DERM Integumentary: Warm, Dry, No Rash Course - Vital Signs Vital signs: Temp Pulse Resp BP Pulse Ox 98.6 F 116 H 18 117/63 99 05/12/20 19:19 05/12/20 19:19 05/12/20 19:19 05/12/20 19:19 05/12/20 19:19 Discharge - Discharge Clinical Impression: Submandibular lymphadenopathy Condition: Stable Disposition: HOME, SELF-CARE Additional Instructions: Lymphadenopathy You have enlargement of lymph glands, called lymphadenopathy. Lymph glands filter tissue fluids. They help to fight infection. Most of the time, enlarged lymph glands are not serious. Lymph glands may react to a viral or bacterial infection by becoming swoll en and painful. When the infection goes away, the glands shrink. Sometimes a lymph gland will remain enlarged for a long time after an infection. Occasionally, a lymph gland may be overwhelmed by infection and form an abscess. If an enlarged lymph gland has signs that are suspicious for tumor, the doctor will recommend a biopsy. A suspicious gland usually is NOT painful, grows very slowly, and is rock-hard to touch. See the doctor or return if there is increasing swelling and redness, high fever, difficulty breathing, or any other change for the worse. Acetaminophen Acetaminophen may be taken for pain relief or fever control. It's much safer than aspirin, offering a wider range of "safe" dosages. It is safe during . Some brand names are Tylenol, Panadol, Datril, Anacin 3, Tempra, and Liquiprin. Acetaminophen can be repeated every four hours. The following are maximum recommended dosages: WEIGHT Dose Drops Elixir Chewable(80mg) (LBS.) drprs=droppers tsp=teaspoon 6 40 mg .4 ml (1/2) 6-11 80 mg .8 ml (full) 1/2 tsp 1 tab 12-16 120 mg 1 1/2 drprs 3/4 tsp 1 1/2 tabs 17-23 160 mg 2 drprs 1 tsp 2 tabs 24-30 240 mg 3 drprs 1 1/2 tsp 3 tabs 30-35 320 mg 2 tsp 4 tabs 36-41 360 mg 2 1/4 tsp 4 1/2 tabs 42-47 400 mg 2 1/2 tsp 5 tabs 48-53 480 mg 3 tsp 6 tabs 54-59 520 mg 3 1/4 tsp 6 1/2 tabs 60-64 560 mg 3 1/2 tsp 7 tabs 65-70 600 mg 3 3/4 tsp 7 1/2 tabs 71-76 640 mg 4 tsp 8 tabs 77-82 720 mg 4 1/2 tsp 9 tabs 83-88 800 mg 5 tsp 10 tabs >89 pounds or adults 650 mg to 900 mg Acetaminophen can be repeated every four hours. Maximum daily dose not to exceed 4000 mg. These maximum recommended dosages are slightly higher than the dosages written on the product container, but these dosages are very safe and well below the toxic dosage for acetaminophen. FOLLOW-UP CARE: If you have been referred to a physician for follow-up care, call the physicians office for an appointment as you were instructed or within the next two days. If you experience worsening or a significant change in your symptoms, notify the physician immediately or return to the Emergency Department at any time for re-evaluation. Referrals: [facility] [Provider Group] - Follow up as needed
== END 2020-05-12 19:47 | disposition home or self-care (01) ==
LOC: ER 19:07
DX: O26.93 Pregnancy related conditions, unspecified, third trimester (principal); R59.0 Localized enlarged lymph nodes; Z3A.29 29 weeks gestation of pregnancy
CPT/HCPCS: 99282

== ENCOUNTER → 2020-07-10 | Outpatient (CLI) | payer MEDICAID ==
[2020-07-10 17:34] LABS: ABSOLUTE EOSINOPHILS # (AUTO) 0.1 10^3/uL (0.0-0.6); ABSOLUTE LYMPHOCYTES (AUTO) 1.7 10^3/uL (0.5-4.7); ABSOLUTE MONOCYTES (AUTO) 0.5 10^3/uL (0.1-1.4); ABSOLUTE NEUT (AUTO) 5.9 10^3/uL (1.7-8.2); BASOPHILS % (AUTO) 0.5 % (0-2); HEMATOCRIT 32.1 % (36.0-47.0); HEMOGLOBIN 10.2 g/dL (12.0-15.5); LYMPHOCYTES % (AUTO) 20.5 % (13-45); MEAN CORPUSCULAR HEMOGLOBIN 22.4 pg (27.0-33.4); MEAN CORPUSCULAR HGB CONC 31.7 g/dL (32.0-36.0); MEAN CORPUSCULAR VOLUME 71 fl (80-97); MONOCYTES % (AUTO) 5.8 % (3-13); PLATELET COUNT 298 10^3/uL (150-450); RED BLOOD COUNT 4.54 10^6/uL (3.72-5.28); RED CELL DISTRIBUTION WIDTH 16.8 % (11.5-14.0); SEGMENTED NEUTROPHILS % (AUTO) 72.2 % (42-78); TOTAL CELLS COUNTED % (AUTO) 100 %; WHITE BLOOD COUNT 8.1 10^3/uL (4.0-10.5)
[2020-07-10 17:47] LABS: ALBUMIN 3.6 g/dL (3.5-5.0); ALKALINE PHOSPHATASE 213 U/L (38-126); ANION GAP 10 (5-19); ASPARTATE AMINO TRANSFERASE 50 U/L (14-36); BILIRUBIN,DIRECT 0.2 mg/dL (0.0-0.4); BILIRUBIN,TOTAL 0.6 mg/dL (0.2-1.3); BLOOD UREA NITROGEN 8 mg/dL (7-20); CALCIUM 9.1 mg/dL (8.4-10.2); CARBON DIOXIDE 19 mmol/L (22-30); CHLORIDE 106 mmol/L (98-107); POTASSIUM 4.5 mmol/L (3.6-5.0); TOTAL PROTEIN 6.2 g/dL (6.3-8.2)
[2020-07-10 17:51] LABS: GLUCOSE 68 mg/dL (75-110)
== END ==
LOC: OD 16:56
PROVIDERS: ATTEND Student in an Organized Health Care Education/Training Program
DX: O13.9 Gestational [pregnancy-induced] hypertension without significant proteinuria, unspecified trimester (principal)
CPT/HCPCS: 36415; 80053; 83615; 84550; 85025

== ENCOUNTER 2020-07-13 23:09 | Inpatient (IN) | payer MEDICAID ==
[2020-07-13] MEDS ORDERED: RINGERS SOLUTION,LACTATED 1,000 ML IV PRN (23:15)
[2020-07-13] MEDS ORDERED: RINGERS SOLUTION,LACTATED 1,000 ML IV ONE (23:15)
[2020-07-13 23:35] LABS: ABSOLUTE EOSINOPHILS # (AUTO) 0.1 10^3/uL (0.0-0.6); ABSOLUTE LYMPHOCYTES (AUTO) 2.3 10^3/uL (0.5-4.7); ABSOLUTE MONOCYTES (AUTO) 0.6 10^3/uL (0.1-1.4); BASOPHILS % (AUTO) 0.5 % (0-2); EOSINOPHILS % (AUTO) 1.4 % (0-6); HEMATOCRIT 32.7 % (36.0-47.0); HEMOGLOBIN 10.4 g/dL (12.0-15.5); LYMPHOCYTES % (AUTO) 25.6 % (13-45); MEAN CORPUSCULAR HEMOGLOBIN 22.4 pg (27.0-33.4); MEAN CORPUSCULAR HGB CONC 31.9 g/dL (32.0-36.0); MEAN CORPUSCULAR VOLUME 70 fl (80-97); MONOCYTES % (AUTO) 6.3 % (3-13); PLATELET COUNT 330 10^3/uL (150-450); RED BLOOD COUNT 4.67 10^6/uL (3.72-5.28); RED CELL DISTRIBUTION WIDTH 17.1 % (11.5-14.0); SEGMENTED NEUTROPHILS % (AUTO) 66.2 % (42-78); TOTAL CELLS COUNTED % (AUTO) 100 %
[2020-07-13 23:48] LABS: ALBUMIN 3.8 g/dL (3.5-5.0); ALKALINE PHOSPHATASE 213 U/L (38-126); ANION GAP 6 (5-19); ASPARTATE AMINO TRANSFERASE 45 U/L (14-36); BILIRUBIN,DIRECT 0.1 mg/dL (0.0-0.4); BILIRUBIN,TOTAL 0.4 mg/dL (0.2-1.3); BLOOD UREA NITROGEN 11 mg/dL (7-20); CALCIUM 9.6 mg/dL (8.4-10.2); CARBON DIOXIDE 23 mmol/L (22-30); CHLORIDE 105 mmol/L (98-107); GLUCOSE 76 mg/dL (75-110); POTASSIUM 4.7 mmol/L (3.6-5.0); TOTAL PROTEIN 6.7 g/dL (6.3-8.2); URIC ACID 6.3 mg/dL (2.5-6.2)
[2020-07-14 00:20] LABS: APPEARANCE,URINE SLIGHTLY-CLOUDY; BILIRUBIN,URINE NEGATIVE (NEGATIVE); COLOR,URINE YELLOW; GLUCOSE, URINE NEGATIVE (NEGATIVE); KETONES,URINE NEGATIVE (NEGATIVE); LEUKOCYTE ESTERASE,URINE TRACE (NEGATIVE); NITRITE,URINE NEGATIVE (NEGATIVE); PROTEIN,URINE >=500 mg/dL (NEGATIVE); UROBILINOGEN,URINE NEGATIVE mg/dL (<2.0)
[2020-07-14 00:27] LABS: INTERNATIONAL RATION (INR) 0.92; PROTHROMBIN TIME 12.5 SEC (11.4-15.4)
[2020-07-14 00:28] LABS: PARTIAL THROMBOPLASTIN TIME 27.7 SEC (23.5-35.8)
[2020-07-14 00:46] LABS: URINE AMPHETAMINES SCREEN NEGATIVE; URINE BARBITURATES SCREEN NEGATIVE; URINE BENZODIAZEPINES SCREEN NEGATIVE; URINE COCAINE SCREEN NEGATIVE; URINE MARIJUANA (THC) SCREEN NEGATIVE; URINE METHADONE SCREEN NEGATIVE; URINE PHENCYCLIDINE SCREEN NEGATIVE
[2020-07-14] MEDS ORDERED: OXYTOCIN/0.9 % SODIUM CHLORIDE 30 UNIT/500 ML RTUINJ IV PRN ×2 (00:51→11:54)
--- NOTE | 2020-07-14 00:59 | Admission Physical ---
Datetime Report Generated by CPN: 07/14/2020 00:59 CURRENT ADMISSION Chief Complaint: Other Chief Complaint Other: Called patient to come in for delivery due to 24hr UTP 1000mg Indication for Induction: PreEclampsia Admit Impression : Term, Intrauterine ; No Active Labor; Intact Membranes; Induction of Labor Admit Plan: Admit to Unit; Initiate Labor Induction Protocol ALLERGIES Medication Allergies: No Known Allergies (06/01/2017) PHYSICAL EXAM General: Normal HEENT: Normal Neurologic: Normal Thyroid: Deferred Heart: Normal Lungs: Normal Breast: Deferred Back: Normal Abdomen: Normal Genitourinary Exam: Normal Extremities: Normal DTRs: Normal Pelvic Type: Adequate Vital Signs: Reviewed VAGINAL EXAM Dilatation: 2 Effacement: 60 Station: -2 Contraction Comments: rare MEMBRANES Membranes: Intact FETUS A Monitoring: External US FHR- Baseline: 125 Variability: Moderate 6-25bpm Accelerations: 15X15 Decelerations: None FHR Category: Category I Presentation: Vertex Admit Comment: 25yo at 38+2ega presents due to elevated BPs and 24 hr UTP 1000mg. PreE. BMI 45. H/o 8#10oz baby. EFW 4134g on 07/10 (9#2oz on 07/10). pelvis proven to 8#11oz. GBS negative. LFTs slightly elevated. Coags nl. Admit to labor and delivery. Initiate pitocin for IOL and anticipate . No need for magnesium at this time - will continue to reassess INFORMED CONSENT Informed Consent Obtained: Vaginal Delivery; Risks, Benefits and Alternatives Discussed Signature: with User ID: [email or web address]
[2020-07-14 01:30] LABS: URINE CREATININE 191.4 mg/dL (16-327)
[2020-07-14 01:37] LABS: UR PRO/CREAT RATIO RESULT 1.7 mg/mg (0.0-0.2); URINE PROTEIN 325.9 mg/dL (<12)
[2020-07-14] MEDS ORDERED: OXYTOCIN/0.9 % SODIUM CHLORIDE 0 UNIT/0 ML RTUINJ ONE (01:42)
[2020-07-14] MEDS ORDERED: LIDOCAINE 1% INJ-PF (10 MG/ML) 30 ML SDV ONE (07:53)
[2020-07-14] MEDS ORDERED: MISOPROSTOL 0.2 MG TABLET ONE (07:53)
[2020-07-14] MEDS ORDERED: OXYTOCIN/0.9 % SODIUM CHLORIDE 30 UNIT/500 ML RTUINJ ONE (07:53)
[2020-07-14] MEDS ORDERED: OXYTOCIN 10 UNIT/ML VIAL ONE (07:53)
[2020-07-14] MEDS ORDERED: NALBUPHINE HCL INJ 10 MG/1 ML AMPULE ONE (08:50)
[2020-07-14] MEDS ORDERED: PROMETHAZINE HCL INJ 25 MG/1 ML VIAL ONE (08:50)
[2020-07-14] MEDS ORDERED: NALBUPHINE HCL INJ 10 MG/1 ML AMPULE INJ ONE (08:53)
[2020-07-14] MEDS ORDERED: PROMETHAZINE HCL INJ 25 MG/1 ML VIAL IV ONE (08:53)
[2020-07-14] MEDS ORDERED: EPHEDRINE SULFATE INJ 50 MG/1 ML AMPULE ONE (09:01)
[2020-07-14] MEDS ORDERED: ROPIVACAINE HCL 0.2% INJ/PF (2 MG/ML) 20 ML SDV ONE (09:02)
[2020-07-14] MEDS ORDERED: FENTANYL/BUPIVACAINE/NS/PF 300 MCG/150 ML RTUINJ EPI ONE (09:02)
[2020-07-14] MEDS ORDERED: ACETAMINOPHEN 325 MG TABLET PO PRN (11:54)
[2020-07-14] MEDS ORDERED: ZOLPIDEM TARTRATE 5 MG TABLET PO PRN (11:54)
[2020-07-14] MEDS ORDERED: MEASLES,MUMPS&RUBELLA VACC/PF 0.5 ML VIAL SUBCUT PRN (11:54)
[2020-07-14] MEDS ORDERED: PROMETHAZINE HCL INJ 25 MG/1 ML VIAL IV PRN (11:54)
[2020-07-14] MEDS ORDERED: PROMETHAZINE HCL 25 MG TABLET PO PRN (11:54)
[2020-07-14] MEDS ORDERED: BENZOCAINE/MENTHOL AEROSOL SPRAY 56 ML TOP PRN (11:54)
[2020-07-14] MEDS ORDERED: PSEUDOEPHEDRINE HCL 30 MG TABLET PO PRN (11:54)
[2020-07-14] MEDS ORDERED: GLYCERIN/WITCH HAZEL LEAF 1 EACH MED..WIPE TP PRN (11:54)
[2020-07-14] MEDS ORDERED: MAGNESIUM HYDROXIDE SUSP 30 ML UDCUP PO PRN (11:54)
[2020-07-14] MEDS ORDERED: PROMETHAZINE HCL 25 MG SUPP.RECT PR PRN (11:54)
[2020-07-14] MEDS ORDERED: ACETAMINOPHEN WITH CODEINE #3 TABLET PO PRN ×2 (11:54)
[2020-07-14] MEDS ORDERED: NA PHOS,M-B/NA PHOS,DI-BA (ADULT) 133 ML ENEMA PR PRN (11:54)
[2020-07-14] MEDS ORDERED: DIPH/PERTUSS(ACELL)/TETANUS VAC/PF 0.5 ML SYR (>=10YO) IM PRN (11:54)
[2020-07-14] MEDS ORDERED: DIPHENHYDRAMINE HCL 25 MG CAPSULE PO PRN (11:54)
[2020-07-14] MEDS ORDERED: DIBUCAINE 1% OINTMENT 28 GM TP PRN (11:54)
[2020-07-14] MEDS ORDERED: BENZOCAINE/MENTHOL AEROSOL SPRAY 56 ML ONE (12:10)
[2020-07-14] MEDS ORDERED: HYDRALAZINE HCL INJ/PF 20 MG/1 ML SDV IV ONE (12:44)
[2020-07-14] MEDS ORDERED: LABETALOL HCL INJ 20 MG/4 ML DISP.SYRIN IV ONE ×2 (12:45→12:47)
--- NOTE | 2020-07-14 13:02 | Warning Signs in Babies ---
VOD Warning Signs Datetime Report Generated by [facility]: 07/14/2020 13:02 VOD#608 -Warning Signs in Babies: Viewed with Parent(s)/Family (07/14/2020 12:45:Zenobia Barahona RN)
--- NOTE | 2020-07-14 14:36 | Delivery Summary ---
Del Sum A-C Datetime Report Generated by CPN: 07/14/2020 14:36 DELIVERY PERSONNEL DELIVERY PERSONNEL: [id number] Delivery Doctor:: Jessica Edmond MD Labor and Delivery Nurse:: Zenobia Barahona RNsheet taker Nurse:: Lena Galvan RN Senior Systems Architect/OFFICER LIEUTENANT: Keiry Ayana ST Senior Systems Architect/OFFICER LIEUTENANT: Lise Thomas MAT PACKER Additional Personnel: : Caridad Carpio RN MATERNAL INFORMATION Delivery Anesthesia: Epidural Medications After Delivery: Pitocin 30 Units in 500ml NS/D5W Estimated Blood Loss (ml): 200 Delivery QBL: 50 Maternal Complications: None LABOR SUMMARY EDC: 07/25/2020 00:00 No. Babies in Womb: 1 Attempted: No Labor Anesthesia: Epidural LABOR INFORMATION Reason for Induction: Pre-Eclampsia Onset of Labor: 07/14/2020 08:16 Complete Dilatation: 07/14/2020 11:27 Oxytocin: Induction Group B Beta Strep: negative Steroids Given: None Reason Steroids Not Administered: Not Applicable MEMBRANES Membranes Rupture Method: Artificial Rupture of Membranes: 07/14/2020 08:16 Length of Rupture (hr): 3.43 Amniotic Fluid Color: Clear Amniotic Fluid Amount: Small Amniotic Fluid Odor: Normal STAGES OF LABOR Stage 1 hr: 3 Stage 1 min: 11 Stage 2 hr: 0 Stage 2 min: 15 Stage 3 hr: 0 Stage 3 min: 2 Total Time in Labor hr: 3 Total Time in Labor min: 28 VAGINAL DELIVERY Episiotomy: None Laceration #1: None Laceration Extension #1: N/A Laceration Repair: Not Applicable Sponge Count Correct: Yes Sharps Count Correct: Yes CSECTION DELIVERY Primary Indication: N/A Secondary Indication: N/A CSection Incidence: N/A Labor: N/A Elective: N/A CSection Incision: N/A BABY A INFORMATION Infant Delivery Date/Time: 07/14/2020 11:42 Method of Delivery: Vaginal Nurse Controlled Delivery: No Born in Route : No : N/A Forceps: N/A Vacuum Extraction: N/A Shoulder Dystocia : Yes SHOULDER DYSTOCIA BABY A Delivery of Head: 07/14/2020 11:41 Time Head to Delivery : 1.0 1st Intervention to Resolve: Gentle Attempt at Traction, Assisted by Maternal Expulsive Efforts 2nd Intervention to Resolve: McRobert's Maneuver 3rd Intervention to Resolve: Suprapubic Pressure Verify NO Fundal Pressure: No Fundal Pressure Applied Arm Under Symphisis at Del: Left PRESENTATION/POSITION BABY A Presentation: Cephalic Cephalic Presentation: Vertex Vertex Position: Right Occipital Transverse Breech Presentation: N/A PLACENTA INFORMATION BABY A Placenta Delivery Time : 07/14/2020 11:44 Placenta Method of Delivery: Spontaneous Placenta Status: Delivered SCORES BABY A Heart Rate 1 min: >100 bpm Resp Effort 1 min: Good Cry Reflex Irritability 1 min: Cough or Sneeze or Pulls Away Muscle Tone 1 min: Active Motion Color 1 min: Body [place], Extremities Blue Resuscitation Effort 1 min: Tactile Stimulation SCORE 1 MIN: 9 Heart Rate 5 min: >100 bpm Resp Effort 5 min: Good Cry Reflex Irritability 5 min: Cough or Sneeze or Pulls Away Muscle Tone 5 min: Active Motion Color 5 min: Body [place], Extremities Blue Resuscitation Effort 5 min: N/A SCORE 5 MIN: 9 INFANT INFORMATION BABY A Gestational Age at Delivery: 38.3 Gestational Status: Early Term- 37- 38.6 Weeks Outcome : Liveborn Infant Condition : Stable Infant Sex: Male IDENTIFICATION BABY A Infant Verification Date/Time: 07/14/2020 11:53 ID Band Number: [id number] Mother's Name Verified: Yes RN Verifying : MJuan Diego Barahona RN, CJuan Diego Carpio RN WEIGHT/LENGTH BABY A Infant Birthweight (gm): 3910 Infant Weight (lb): 8 Infant Weight (oz): 10 Infant Length (in): 20.50 Length (cm): 52.07 CORD INFORMATION BABY A No. Cord Vessels: 3 Nuchal Cord : N/A Cord Blood Taken: Yes-For Storage (Mom's Blood type +) Infant Suction: Mouth ASSESSMENT BABY A Complications: None Physical Findings at Delivery: Within Normal Limits Respirations: Appears Normal Skin to Skin: Yes Human Services Care Specialist/ALS Called : No Care By: Luicnda Carpio RN Transferred To: Remains with Mother BABY B INFORMATION : N/A SIGNATURES Signature: with User ID: [email or web address]
--- NOTE | 2020-07-14 14:36 | Birth Certificate Data ---
Cert Data Datetime Report Generated by CPN: 07/14/2020 14:36 CERTIFICATE DATA Delivery Provider: Jessica Edmond MD (07/14/2020 00:59:Lena Galvan RN) 47a. Care: Yes (07/14/2020 00:59:Calli Rodriguez RN) 47b. Date of First Visit: 03/30/2020 00:00 (07/14/2020 00:59:Calli Rodriguez RN) 47c. Date of Last Visit: 07/10/2020 00:00 (07/14/2020 00:59:Calli Rodriguez RN) 47d. Number of Visits: 10 (07/14/2020 00:59:Calli Rodriguez RN) 48a. Number of Prev Live Births: 1 (07/14/2020 00:59:Calli Rodriguez RN) 48b. Now Livin (07/14/2020 00:59:Calli Rodriguez RN) 48c. Live Births Now : 0 (07/14/2020 00:59:QS system process) 48d. Date of Last Live : 06/01/2017 00:00 (07/14/2020 00:59:Calli Rodriguez RN) 48e. Losses: 1 (07/14/2020 00:59:Calli Rodriguez RN) 48f. Date of Last Preg Loss: 06/24/2015 00:00 (07/14/2020 00:59:Calli Rodriguez RN) RISK FACTORS IN THIS 49a. Diabetes: No (07/14/2020 00:59:Calli Rodriguez RN) 49b. Hypertension: No (07/14/2020 00:59:Calli Rodriguez RN) 49d. Stillborns: No (07/14/2020 00:59:Calli Rodriguez RN) 49d. IUGR: No (07/14/2020 00:59:aClli Rodriguez RN) 49e. Infertility Treatment: No (07/14/2020 00:59:Calli Rodriguez RN) 49f. Previous Cesareans: 0 (07/14/2020 00:59:Calli Rodriguez RN) Mother's Height 50b. Height Inches: 64 (07/14/2020 02:54:QS system process) Mother's Weight 51a. Pre- Weight (lbs): 210 (07/14/2020 00:59:Calli Rodriguez RN) 51b. Weight at Delivery (lbs): 277 (07/14/2020 02:54:QS system process) Infections Present/Treated 53a. Gonorrhea: No (07/14/2020 00:59:Calli Rodriguez RN) Results this Hospital Visit : Negative (07/14/2020 00:59:Calli Rodriguez RN) 53b. Syphilis: No (07/14/2020 00:59:Calli Rodriguez RN) 53c. Chlamydia: No (07/14/2020 00:59:Calli Rodriguez RN) Results this Hospital Visit: Negative (07/14/2020 00:59:Calli Rodriguez RN) 53d. Hepatitis B: No (07/14/2020 00:59:Calli Rodriguez RN) Results this Hospital Visit: Negative (07/14/2020 00:59:Calli Rodriguez RN) 53e. Hepatitis C: Negative (07/14/2020 00:59:Calli Rodriguez RN) 53h. Mother Tested for HBsAG: Yes (07/14/2020 00:59:Calli Rodriguez RN) 53i. Date Tested: 03/30/2020 00:00 (07/14/2020 00:59:Calli Rodriguez RN) 53j. Test Result: Negative (07/14/2020 00:59:Calli Rodriguez RN) Obstetric Procedures 54a, b, c. Obstetric Procedures: Ultrasound; NST (07/14/2020 00:59:Calli Rodriguez RN) Cigarette Smoking Cigarette Smoking: Never Smoker. [id number] (07/14/2020 00:59:Calli Rodriguez RN) Onset of Labor 56a. PROM >12 Hrs: 3.43 (07/14/2020 00:59:QS system process) 56b. Precipitous Labor <3 Hrs: 3 (07/14/2020 00:59:QS system process) 56c. Prolonged Labor > 20 Hrs: 3 (07/14/2020 00:59:QS system process) 57a. Induction of Labor: Induction (07/14/2020 00:59:Lena Galvan RN) 57c. Non-Vertex Presentation A: Vertex (07/14/2020 00:59:Lena Galvan RN) 57d. Steroids - Lung Mat: None (07/14/2020 00:59:Lena Galvan RN) 57d. Steroids - Lung Mat: Not Applicable (07/14/2020 00:59:Lena Galvan RN) 57g. Moderate/Heavy Meconium: Clear (07/14/2020 08:16:Zenobia Barahona RN) 57h. Intolerance of Labor: N/A (07/14/2020 00:59:Zenobia Barahona RN) : N/A (07/14/2020 00:59:Zenobia Barahona RN) 57i. Epidural/Spinal Anesthesia: Epidural (07/14/2020 00:59:Lena Galvan RN) Method of Delivery 58a. Forceps - Unsuccessful A: N/A (07/14/2020 00:59:Lena Galvan RN) 58b. Vacuum - Unsuccessful A: N/A (07/14/2020 00:59:Lena Galvan RN) 58c. Presentation at 58c. Presentation at - A : Vertex (07/14/2020 00:59:Lena Galvan RN) 58c. Presentation at - A : N/A (07/14/2020 00:59:Lena Galvan RN) 58c. Presentation at - A : Cephalic (07/14/2020 00:03:Calli Rodriguez RN) Final Route and Method of Del 58d. Baby A Route/Delivery: Vaginal (07/14/2020 00:59:Lena Galvan RN) 58e. Trial of Labor Attempted: No (07/14/2020 00:59:Lena Galvan RN) 58e. Trial of Labor Attempted A: N/A (07/14/2020 00:59:Lena Galvan RN) 58e. Trial of Labor Attempted B: N/A (07/14/2020 00:59:Lena Galvan RN) Maternal Morbidity 59b. 3rd or 4th Degree Lacs: None (07/14/2020 00:59:Jessica Edmond MD ([facility])) Birthweight Baby A: 3910 (07/14/2020 00:59:Malina Michelle RN) 60a. Pounds : 8 (07/14/2020 00:59:QS system process) 60b. Ounces: 10 (07/14/2020 00:59:QS system process) 61. GA at Delivery Baby A: 38.3 (07/14/2020 00:59:Lena Galvan RN) : Early Term- 37- 38.6 Weeks (07/14/2020 00:59:QS system process) 62a. 5 Minute Baby A: 9 (07/14/2020 00:59:QS system process)
[2020-07-14] MEDS: IBUPROFEN 800 MG TABLET PO SCH ×2 (14:46→21:56)
[2020-07-14] MEDS: FERROUS SULFATE 325 MG TABLET PO SCH (17:58)
[2020-07-14] MEDS: DOCUSATE SODIUM 100 MG CAPSULE PO SCH (17:58)
[2020-07-14] MEDS: FAMOTIDINE 20 MG TABLET PO SCH (21:56)
[2020-07-15] MEDS: IBUPROFEN 800 MG TABLET PO SCH ×3 (05:51→22:29)
[2020-07-15 06:52] LABS: HEMATOCRIT 30.1 % (36.0-47.0); HEMOGLOBIN 9.4 g/dL (12.0-15.5); MEAN CORPUSCULAR HEMOGLOBIN 22.1 pg (27.0-33.4); MEAN CORPUSCULAR VOLUME 71 fl (80-97); PLATELET COUNT 313 10^3/uL (150-450); RED BLOOD COUNT 4.23 10^6/uL (3.72-5.28); WHITE BLOOD COUNT 11.3 10^3/uL (4.0-10.5)
[2020-07-15] MEDS: FERROUS SULFATE 325 MG TABLET PO SCH ×2 (09:51→17:49)
[2020-07-15] MEDS: FAMOTIDINE 20 MG TABLET PO SCH ×2 (09:51→22:30)
[2020-07-15] MEDS: DOCUSATE SODIUM 100 MG CAPSULE PO SCH ×2 (09:51→17:49)
[2020-07-15] MEDS: SENNOSIDES/DOCUSATE 8.6-50 MG 1 EACH TABLET PO SCH (09:51)
[2020-07-15] MEDS: PRENATAL VITAMIN W DHA CAPSULE PO SCH (09:51)
[2020-07-16] MEDS: IBUPROFEN 800 MG TABLET PO SCH (05:43)
[2020-07-16] MEDS: SENNOSIDES/DOCUSATE 8.6-50 MG 1 EACH TABLET PO SCH (09:45)
[2020-07-16] MEDS: FERROUS SULFATE 325 MG TABLET PO SCH (09:45)
[2020-07-16] MEDS: DOCUSATE SODIUM 100 MG CAPSULE PO SCH (09:45)
[2020-07-16] MEDS: PRENATAL VITAMIN W DHA CAPSULE PO SCH (09:46)
[2020-07-16] MEDS: FAMOTIDINE 20 MG TABLET PO SCH (09:46)
--- NOTE | 2020-07-16 11:42 | PDOC PROGRESS REPORT ---
Subjective-OB Progress Note for:: 07/15/20 Subjective: Pt doing well, no headaches or vision changes. Would like to go home today if possible. Reports light bleeding, reg diet and voiding w/o difficulty. Physical Exam (OB) Vital Signs: Temp Pulse Resp BP Pulse Ox 97.8 F 86 18 142/69 H 100 07/16/20 07:51 07/16/20 07:51 07/16/20 07:51 07/16/20 07:51 07/16/20 07:51 Intake & Output 07/15/20 07/16/20 07/17/20 06:59 06:59 06:59 Intake Total 3500 400 Balance 3500 400 - PIH/Pre-Eclampsia DTR's: 1 + Clonus: Negative Headache: Absent Epigastric Pain: No Visual Changes: No - Maternal Morbidity 59. Maternal Morbidity (serious complications experinced by the mother associated with labor and delivery: None of the above - Lochia Lochia Amount: Scant < 10 ml Lochia Color: Rubra/Red - Abdomen Description: Soft Hernia Present: No Fundal Description: Firm, Midline Fundal Height: u/u - u/2 Objective-Diagnostic Laboratory: 07/15/20 06:14 07/13/20 23:23 Assessment and Plan(PN) - Assessment and Plan (1) Mild pre-eclampsia Qualifiers: Trimester: third trimester Qualified Code(s): O14.03 - Mild to moderate pre-eclampsia, third trimester Is this a current diagnosis for this admission?: Yes (2) (spontaneous vaginal delivery) Is this a current diagnosis for this admission?: Yes (3) Shoulder dystocia during labor and delivery Is this a current diagnosis for this admission?: Yes - Time Spent with Patient Time with patient: Less than 15 minutes Medications reviewed and adjusted accordingly: Yes - Disposition Anticipated Discharge Disposition: Home, Self Care Anticipated Discharge Timeframe: within 24 hours
--- NOTE | 2020-07-16 11:48 | PDOC DISCHARGE SUMMARY ---
Impression - Admit/DC Date/PCP Admission Date/Primary Care Provider: 07/13/20 23:09 Discharge Date: 07/16/20 - Discharge Diagnosis (1) Mild pre-eclampsia Is this a current diagnosis for this admission?: Yes (2) (spontaneous vaginal delivery) Is this a current diagnosis for this admission?: Yes (3) Shoulder dystocia during labor and delivery Is this a current diagnosis for this admission?: Yes - Additional Information Resuscitation Status: Full Code Discharge Diet: Regular Discharge Activity: Balance Activity w/Rest, Pelvic Rest Prescriptions: Ibuprofen [Motrin 800 mg Tablet] 800 mg PO Q8HP PRN #60 tablet PRN Reason: Home Medications: Pnv 102/Iron/Folate 1/Dss/Dha [Vitafol Fe+ Docusate Combo Pck] 1 tab PO DAILY 05/23/17 Docusate Sodium [Colace 100 mg Capsule] 100 mg PO BID #60 capsule 06/03/17 Ferrous Sulfate [Feosol 325 mg Tablet] 325 mg PO BID #60 tablet 06/03/17 Ibuprofen [Motrin 800 mg Tablet] 800 mg PO Q8HP PRN #60 tablet 07/16/20 HPI Gestational Age: 38.3 Reason(s) for Admission: Induction of Labor, PIH Procedures: NST Intrapartum Procedure(s): Spontaneous Vaginal Delivery Intrapartum Procedure Note: shoulder dystocia Hospital Course 59. Maternal Morbidity (serious complications experinced by the mother associated with labor and delivery: None of the above Results Laboratory Results: WBC 11.3 10^3/uL (4.0-10.5) H 07/15/20 06:14 RBC 4.23 10^6/uL (3.72-5.28) 07/15/20 06:14 Hgb 9.4 g/dL (12.0-15.5) L 07/15/20 06:14 Hct 30.1 % (36.0-47.0) L 07/15/20 06:14 MCV 71 fl (80-97) L 07/15/20 06:14 MCH 22.1 pg (27.0-33.4) L 07/15/20 06:14 MCHC 31.0 g/dL (32.0-36.0) L 07/15/20 06:14 RDW 17.0 % (11.5-14.0) H 07/15/20 06:14 Plt Count 313 10^3/uL (150-450) 07/15/20 06:14 Lymph % (Auto) 25.6 % (13-45) 07/13/20 23:23 [place] % (Auto) 6.3 % (3-13) 07/13/20 23:23 Eos % (Auto) 1.4 % (0-6) 07/13/20 23:23 Baso % (Auto) 0.5 % (0-2) 07/13/20 23:23 Absolute Neuts (auto) 6.0 10^3/uL (1.7-8.2) 07/13/20 23:23 Absolute Lymphs (auto) 2.3 10^3/uL (0.5-4.7) 07/13/20 23:23 Absolute Monos (auto) 0.6 10^3/uL (0.1-1.4) 07/13/20 23:23 Absolute Eos (auto) 0.1 10^3/uL (0.0-0.6) 07/13/20 23:23 Absolute Basos (auto) 0.0 10^3/uL (0.0-0.2) 07/13/20 23:23 Seg Neutrophils % 66.2 % (42-78) 07/13/20 23:23 PT 12.5 SEC (11.4-15.4) 07/13/20 23:54 INR 0.92 07/13/20 23:54 APTT 27.7 SEC (23.5-35.8) 07/13/20 23:54 Sodium 133.9 mmol/L (137-145) L 07/13/20 23:23 Potassium 4.7 mmol/L (3.6-5.0) 07/13/20 23:23 Chloride 105 mmol/L (98-107) 07/13/20 23:23 Carbon Dioxide 23 mmol/L (22-30) 07/13/20 23:23 Anion Gap 6 (5-19) 07/13/20 23:23 BUN 11 mg/dL (7-20) 07/13/20 23:23 Creatinine 0.68 mg/dL (0.52-1.25) 07/13/20 23:23 Est GFR ( Amer) > 60 (>60) 07/13/20 23:23 Est GFR (MDRD) Non-Af > 60 (>60) 07/13/20 23:23 Glucose 76 mg/dL (75-110) 07/13/20 23:23 Uric Acid 6.3 mg/dL (2.5-6.2) H 07/13/20 23:23 Calcium 9.6 mg/dL (8.4-10.2) 07/13/20 23:23 Total Bilirubin 0.4 mg/dL (0.2-1.3) 07/13/20 23:23 Direct Bilirubin 0.1 mg/dL (0.0-0.4) 07/13/20 23:23 Neonat Total Bilirubin Not Reportable 07/13/20 23:23 Neonat Direct Bilirubin Not Reportable 07/13/20 23:23 Neonat Indirect Bili Not Reportable 07/13/20 23:23 AST 45 U/L (14-36) H 07/13/20 23:23 ALT 36 U/L (<35) H 07/13/20 23:23 Alkaline Phosphatase 213 U/L (38-126) H 07/13/20 23:23 Total Protein 6.7 g/dL (6.3-8.2) 07/13/20 23:23 Albumin 3.8 g/dL (3.5-5.0) 07/13/20 23:23 Urine Color YELLOW 07/13/20 23:40 Urine Appearance SLIGHTLY-CLOUDY 07/13/20 23:40 Urine pH 6.0 (5.0-9.0) 07/13/20 23:40 Ur Specific [place] 1.020 07/13/20 23:40 Urine Protein >=500 mg/dL (NEGATIVE) H 07/13/20 23:40 Urine Glucose (UA) NEGATIVE mg/dL (NEGATIVE) 07/13/20 23:40 Urine Ketones NEGATIVE mg/dL (NEGATIVE) 07/13/20 23:40 Urine Blood NEGATIVE (NEGATIVE) 07/13/20 23:40 Urine Nitrite NEGATIVE (NEGATIVE) 07/13/20 23:40 Urine Bilirubin NEGATIVE (NEGATIVE) 07/13/20 23:40 Urine Urobilinogen NEGATIVE mg/dL (<2.0) 07/13/20 23:40 Ur Leukocyte Esterase TRACE (NEGATIVE) H 07/13/20 23:40 Urine WBC (Auto) 3 /HPF 07/13/20 23:40 Urine RBC (Auto) 0 /HPF 07/13/20 23:40 Squamous Epi Cells Auto 2 /HPF 07/13/20 23:40 Urine Mucus (Auto) RARE /LPF 07/13/20 23:40 Urine Creatinine 191.4 mg/dL (16-327) 07/13/20 23:40 Protein/Creatinin Ratio 1.7 mg/mg (0.0-0.2) H 07/13/20 23:40 Urine Total Protein 325.9 mg/dL (<12) H 07/13/20 23:40 Urine Ascorbic Acid NEGATIVE (NEGATIVE) 07/13/20 23:40 Urine Opiates Screen NEGATIVE 07/13/20 23:40 Urine Methadone Screen NEGATIVE 07/13/20 23:40 Ur Barbiturates Screen NEGATIVE 07/13/20 23:40 Ur Phencyclidine Scrn NEGATIVE 07/13/20 23:40 Ur Amphetamines Screen NEGATIVE 07/13/20 23:40 U Benzodiazepines Scrn NEGATIVE 07/13/20 23:40 Urine Cocaine Screen NEGATIVE 07/13/20 23:40 U Marijuana (THC) Screen NEGATIVE 07/13/20 23:40 RPR NONREACTIVE (NONREACTIVE) 07/13/20 23:23 Blood Type A POSITIVE 07/13/20 23:23 Antibody Screen NEGATIVE 07/13/20 23:23 Plan Plan of Treatment: f/u for bp check 1 wk Time Spent: Less than 30 Minutes
[2020-07-16 12:08] VITALS: BP 115/68
== END 2020-07-16 13:16 | disposition home or self-care (01) | DRG 807 ==
LOC: LR 23:09 → 2S 07-14 14:40
PROVIDERS: ADMIT Student in an Organized Health Care Education/Training Program; ATTEND Obstetrics & Gynecology
PROC: 10E0XZZ Delivery of Products of Conception, External Approach (ICD-10-PCS; principal; 2020-07-14)
DX: O14.04 Mild to moderate pre-eclampsia, complicating childbirth (principal); Z37.0 Single live birth; O66.0 Obstructed labor due to shoulder dystocia; Z3A.38 38 weeks gestation of pregnancy
CPT/HCPCS: 1967; 36415; 80053; 80307; 81001; 82570; 84156; 84550; 85025; 85027; 85610; 85730; 86592; 86850; 86900; 86901; 94760; J2300; J2550; J2590; J2795; J3010; J3490